=== PATIENT | male | born 1955 | race Caucasian/White ===

== ENCOUNTER 2019-02-07 14:15 | Emergency (ER) | payer BC ==
[~2019-02-07] VITALS: Ht 167.6 cm; Wt 59.0 kg
[2019-02-07 14:16] VITALS: BP 126/77
[2019-02-07] MEDS ORDERED: Ketorolac 30mg Inj IM ONE (14:30)
[2019-02-07] MEDS ORDERED: NKM (15:44)
--- NOTE | 2019-02-07 16:41 | Emergency Room Report ---
History of Present Illness General Chief Complaint: Multiple Trauma/Fall Source: EMS Present Illness HPI 63-year-old male with history of brain tumor currently going through chemotherapy brought in by paramedics complaining of left-sided hip pain and left-sided rib pain after falling today from a 5 story building. Denies head trauma, loss of consciousness, nausea vomiting, blurred vision. Rating the pain 10 out of 10 in the left hip with radiation to left foot denies tingling and numbness. Denies other injuries. Denies chest pain, palpitation, shortness of breath, abdominal pain, nausea vomiting. Has not taken medication for pain yet. Allergies: Coded Allergies: No Known Allergies (Unverified , 02/07/19) Patient History Past Medical History: see triage record Past Surgical History: unable to obtain Pertinent Family History: none Immunizations: UTD Reviewed Nursing Documentation: PMH: Agreed; PSxH: Agreed Nursing Documentation-PMH Past Medical History: No History, Except For Review of Systems All Other Systems: negative except mentioned in HPI Physical Exam Vital Signs Date Time Temp Pulse Resp B/P (MAP) Pulse Ox O2 Delivery O2 Flow Rate FiO2 02/07/19 14:16 97.5 78 14 126/77 (93) 98 Room Air Sp02 EP Interpretation: reviewed, normal General Appearance: no apparent distress, alert, GCS 15, non-toxic Head: normocephalic, atraumatic Eyes: bilateral eye normal inspection, bilateral eye PERRL ENT: hearing grossly normal, normal pharynx, no angioedema, normal voice Neck: full range of motion, supple/symm/no masses Respiratory: chest non-tender, lungs clear, normal breath sounds, speaking full sentences Cardiovascular #1: regular rate, rhythm, no edema, no murmur Gastrointestinal: normal bowel sounds, non tender, soft, non-distended, no guarding, no rebound Genitourinary: normal inspection, no CVA tenderness Musculoskeletal: back normal, digits/nails normal, tender - Left hip Neurologic: alert, oriented x3, responsive, motor strength/tone normal, sensory intact, speech normal Psychiatric: normal inspection, judgement/insight normal Skin: no rash Lymphatic: no adenopathy Medical Decision Making PA Attestation All diagnoses and treatment plans were reviewed and discussed with my supervising physician Dr. Griffin Diagnostic Impression: Primary Impression: Fracture of left ilium ER Course 63-year-old male with history of brain tumor currently going through chemotherapy brought in by paramedics complaining of left-sided hip pain and left-sided rib pain after falling today from a 5 story building. Denies head trauma, loss of consciousness, nausea vomiting, blurred vision. Rating the pain 10 out of 10 in the left hip with radiation to left foot denies tingling and numbness. Denies other injuries. Denies chest pain, palpitation, shortness of breath, abdominal pain, nausea vomiting. Has not taken medication for pain yet. Ddx considered but are not limited to: hip fracture, iliac fracture, hip sprain , contusion Vital signs: are WNL, pt. is afebrile H&PE are most consistent with: Fracture of left ilium, chest contusion ORDERS: Left hip x-ray, rib series on the left side, ibuprofen, Tylenol 3 ED INTERVENTIONS: Toradol DISCHARGE: At this time pt. is stable for d/c to home. Will provide printed patient care instructions, and any necessary prescriptions. Care plan and follow up instructions have been discussed with the patient prior to discharge. Patient was provided with crutches patient wanted to leave as he did not want to be in a hospital environment. Patient agrees to follow-up with network management specialist. Patient stable at time of discharge. Chest X-Ray Diagnostic Results Chest X-Ray Diagnostic Results : Chest X-Ray Ordered: Yes # of Views/Limited/Complete: Complete Indication: Other - Pain over left side of ribs EP Interpretation: Yes PA Xray: Interpretation reviewed, by supervising MD, and agrees with findings. Interpretation: no consolidation, no effusion, no pneumothorax Impression: No acute disease Electronically Signed by: Paris Knight PA-C Other X-Ray Diagnostic Results Other X-Ray Diagnostic Results : X-Ray ordered: Left hip and pelvis # of Views/Limited Vs Complete: 3 View Indication: Other - Trauma EP Interpretation: Yes PA Xray: Interpretation reviewed, by supervising MD, and agrees with findings. Interpretation: no dislocation, other - Fracture of left ilium Impression: Other - Left iliac fracture Electronically Signed by: Paris Knight PA-C Last Vital Signs Date Time Temp Pulse Resp B/P (MAP) Pulse Ox O2 Delivery O2 Flow Rate FiO2 02/07/19 15:06 97.6 02/07/19 14:16 78 14 126/77 (93) 98 Room Air Disposition: HOME, SELF-CARE Condition: Stable Scripts Ibuprofen (Ibu) 800 Mg Tablet 800 MG PO TID, #30 TAB Prov: Paris Green 02/07/19 Acetaminophen With Codeine (T#3) (TYLENOL #3 TAB*) Y Tab 1 TAB ORAL Q8HR PRN for For Pain for 4 Days, #15 TAB Prov: Paris Green 02/07/19 Referrals: NON PHYSICIAN (PCP) Patient Instructions: Iliac Apophysitis With Rehab-[facility] Additional Instructions: Follow-up with network management specialist if worsening symptoms return to the emergency room Paris Green Feb 07, 2019 16:41
[2019-02-07] MEDS ORDERED: IBU800 MG PO (16:42)
[2019-02-07] MEDS ORDERED: ACETAMINOPHEN-1 EAC1 ORAL (16:42)
--- NOTE | 2019-02-07 16:42 | Diagnostic Imaging Report ---
Indication: Pain, status post fall Technique: One view of the pelvis, 2 views of the left hip Comparison: No Findings: There is a lucency through the left iliac wing consistent with a fracture. This is displaced by a few millimeters. No hip fracture demonstrated. No definite acetabular fracture. Joint spaces are preserved. Impression: Positive for unusual left iliac wing fracture. Findings discussed by phone with nurse practitioner Autumn in the emergency room at the time of interpretation
--- NOTE | 2019-02-07 16:43 | Diagnostic Imaging Report ---
Indication: Pain, status post fall Technique: 2 views of the left ribs, one view of the chest Comparison: none Findings: There are nondisplaced fractures of the lateral left sixth and seventh ribs. No other definite fractures are demonstrated. No pneumothorax. Lungs pleural spaces are clear. Heart size is normal. Impression: Positive for left sixth and seventh rib fractures Findings discussed by phone with nurse practitioner Autumn in the emergency room at the time of interpretation
[2019-02-07 16:49] VITALS: BP 128/91
== END 2019-02-07 16:49 | disposition home or self-care (01) ==
LOC: EDBD 14:15 → EMR 14:30
DX: C71.9 Malignant neoplasm of brain, unspecified (principal); S32.302A Unspecified fracture of left ilium, initial encounter for closed fracture; R07.81 Pleurodynia; W17.89XA Other fall from one level to another, initial encounter; Y92.9 Unspecified place or not applicable
CPT/HCPCS: 71101; 73502; 96372; 99284; J1885